=== PATIENT | female | born 1985 | race Caucasian/White ===

== ENCOUNTER 2017-09-13 01:12 | Emergency (ER) | payer BC ==
[2017-09-13] MEDS ORDERED: Sodium Chloride 0.9% 10 ML Syringe FLUSH PRN (01:24)
[2017-09-13] MEDS ORDERED: Promethazine 25 MG/ML SDV IM ONE (01:24)
[2017-09-13] MEDS ORDERED: Ketorolac 30 MG/ML SDV IVPUSH ONE (01:24)
[2017-09-13] MEDS ORDERED: Ondansetron 4 MG/2 ML SDV IVPUSH ONE (01:24)
[2017-09-13] MEDS ORDERED: Sodium Chloride 0.9% 1,000 ML IV ONE ×2 (01:25→02:25)
[2017-09-13] MEDS ORDERED: Loperamide 2 MG Tab PO ONE (01:25)
--- NOTE | 2017-09-13 01:31 | EDM.PDOC ---
ED HPI GENERAL MEDICAL PROBLEM - General Chief Complaint: Gastrointestinal Problem Stated Complaint: Vomiting, diarrhea Time Seen by Provider: 09/13/17 01:23 Source of Information: Reports: Patient History Limitations: Reports: No Limitations - History of Present Illness INITIAL COMMENTS - FREE TEXT/NARRATIVE: Sudden emesis/diarrhea starting at 10pm tonight. Feels shaky. No other complaints. Returned from [place] last Sunday. [place] well until tonight. Had salad that "didn't taste quite right" for dinner. 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 Throat Pain Score (Numeric/FACES): 5 - Related Data Allergies Allergy/AdvReac Type Severity Reaction Status Date / Time No Known Allergies Allergy Verified 09/17/17 00:13 Home Meds: Home Meds Multivitamin [Chewable Multi Vitamin] 1 each PO DAILY 09/23/15 [History] Non-Formulary Medication [NF Drug] 1 tab PO DAILY 09/23/15 [History] Ciprofloxacin [Cipro 500 MG/5 ML Susp] 500 mg PO Q12HR 10 Days #19 bottle [Rx] Ondansetron [Zofran ODT] 4 mg PO Q6H PRN #20 tab.dis 09/17/17 [Rx] Past Medical History - Past Health History Medical/Surgical History: Denies Medical/Surgical History Social & Family History - Tobacco Use Smoking Status *Q: Never Smoker ED ROS GENERAL - Review of Systems Review Of Systems: See Below Constitutional: Reports: Chills, Malaise, Decreased Appetite. Denies: Fever HEENT: Reports: No Symptoms Respiratory: Reports: No Symptoms Cardiovascular: Reports: No Symptoms GI/Abdominal: Reports: Diarrhea, Nausea, Vomiting. Denies: Abdominal Pain, Hematemesis, Hematochezia : Reports: No Symptoms Musculoskeletal: Reports: No Symptoms Skin: Reports: No Symptoms Neurological: Reports: No Symptoms Psychiatric: Reports: No Symptoms ED EXAM, GI/ABD - Physical Exam Exam: See Below Exam Limited By: No Limitations General Appearance: Alert, WD/WN, Moderate Distress (actively vomiting) Eyes: Bilateral: Normal Appearance, EOMI Nose: No: Nasal Drainage Throat/Mouth: Normal Inspection, Normal Lips, Normal Voice, No Airway Compromise Head: Atraumatic, Normocephalic Neck: Normal Inspection, Supple, Non-Tender, Full Range of Motion Respiratory/Chest: No Respiratory Distress, Lungs Clear, Normal Breath Sounds, No Accessory Muscle Use, Chest Non-Tender Cardiovascular: Normal Peripheral Pulses, Regular Rate, Rhythm, No Murmur GI/Abdominal Exam: Soft, No Distention, Tender (mild diffuse discomfort with palpation, bowel sounds present). No: Guarding, Rigid, Rebound (Female) Exam: Deferred Rectal (Female) Exam: Deferred Back Exam: Normal Inspection. No: CVA Tenderness (L), CVA Tenderness (R) Extremities: Normal Inspection Neurological: Alert, Oriented, CN II-XII Intact, Normal Cognition, Normal Gait, No Motor/Sensory Deficits Psychiatric: Normal Affect, Normal Mood Skin Exam: Warm, Dry, Intact, Normal Color Course - Vital Signs Last Recorded V/S: Last Vital Signs Temp 36.6 C 09/13/17 01:48 Pulse 103 H 09/13/17 01:48 Resp 16 09/13/17 01:48 BP 125/75 09/13/17 01:48 Pulse Ox 100 09/13/17 01:48 - Orders/Labs/Meds Meds: Medications Discontinued Medications Generic Name Dose Route Start Last Admin Trade Name Aracely PRN Reason Stop Dose Admin Diazepam 2 mg 09/13/17 01:40 09/13/17 04:50 Valium IVPUSH 09/13/17 01:41 Not Given ONETIME ONE Sodium Chloride 1,000 mls @ 999 mls/hr 09/13/17 01:25 09/13/17 01:29 Normal Saline IV 09/13/17 02:25 999 mls/hr .BOLUS ONE Administration Sodium Chloride 1,000 mls @ 999 mls/hr 09/13/17 02:25 09/13/17 02:34 Normal Saline IV 09/13/17 03:25 999 mls/hr .BOLUS ONE Administration Ketorolac Tromethamine 30 mg 09/13/17 01:24 09/13/17 01:29 Toradol IVPUSH 09/13/17 01:25 30 mg ONETIME ONE Administration Loperamide HCl 4 mg 09/13/17 01:25 09/13/17 02:35 Imodium Ad PO 09/13/17 01:26 4 mg ONETIME ONE Administration Ondansetron HCl 4 mg 09/13/17 01:24 09/13/17 01:29 Zofran IVPUSH 09/13/17 01:25 4 mg ONETIME ONE Administration Promethazine HCl 25 mg 09/13/17 01:24 09/13/17 01:35 Phenergan IM 09/13/17 01:25 25 mg ONETIME ONE Administration Sodium Chloride 10 ml 09/13/17 01:24 Saline Flush FLUSH ASDIRECTED PRN Keep Vein Open - Re-Assessments/Exams Free Text/Narrative Re-Assessment/Exam: 09/13/17 01:29 Suspect VGE vs food poisoning. Plan at this time is hydration, antiemetics, Imodium. Will discharge patient home if things improve. If viral in nature, this should run its course. Discussed with patient that with recent travel out of country, may need to consider further testing such as stool testing and initiation of antibiotics if this does not appear to run a normal VGE course. Departure - Departure Time of Disposition: 04:30 Disposition: Home, Self-Care 01 Condition: Good Clinical Impression: Gastroenteritis - Discharge Information Instructions: Viral Gastroenteritis, Adult, [id number] Referrals: PCP,None [Primary Care Provider] - Forms: ED Department Discharge, ED Return to Work/School Form Additional Instructions: Home, rest, clear liquid diet. Advance diet as tolerated in afternoon. Follow up as needed if you have problems.
[2017-09-13 01:50] VITALS: BP 125/75
== END 2017-09-13 04:10 | disposition home or self-care (01) ==
LOC: LL.ED 01:12
DX: K52.9 Noninfective gastroenteritis and colitis, unspecified (principal); Z79.899 Other long term (current) drug therapy
CPT/HCPCS: 96361; 96372; 96374; 96375; 99284; A9270-GY; J1885; J2405; J2550; J7030

== ENCOUNTER 2017-09-17 00:12 | Emergency (ER) | payer BC ==
[2017-09-17] MEDS ORDERED: Ondansetron 4 MG/2 ML SDV IVPUSH PRN (00:15)
[2017-09-17] MEDS ORDERED: Ondansetron 4 MG/2 ML SDV ONE (00:23)
[2017-09-17] MEDS ORDERED: Sodium Chloride 0.9% 10 ML Syringe FLUSH PRN (00:31)
[2017-09-17] MEDS ORDERED: Lactated Ringers 1,000 ML IV SCH (00:36)
--- NOTE | 2017-09-17 00:57 | EDM.PDOC ---
ED HPI GENERAL MEDICAL PROBLEM - General Chief Complaint: Gastrointestinal Problem Stated Complaint: diarrhea, vomitting, chills, weak, dizzy Time Seen by Provider: 09/17/17 00:15 Source of Information: Reports: Patient History Limitations: Reports: No Limitations - History of Present Illness INITIAL COMMENTS - FREE TEXT/NARRATIVE: Patient is a 32-year-old who was seen in the ER with chief complaint of not feeling well patient states that approximately 4 days ago on Sunday she was seen in the ER for diarrhea and gastroenteritis patient was treated with Lomotil IV fluids sent home since then she's had multiple episodes of nausea with vomiting dry heaves chills and an urge to have a bowel movement but has not been able to until she got here she's had a B bowel movement in the ER patient recently traveled to [facility]. Onset: Gradual Duration: Day(s):, Getting Worse Location: Reports: Abdomen Quality: Reports: Ache, Other (Crampy and sharp epigastric) Severity: Moderate Improves with: Reports: None Worsens with: Reports: None Context: Reports: Other (Illness) Associated Symptoms: Reports: Fever/Chills, Loss of Appetite, Nausea/Vomiting - Related Data Allergies Allergy/AdvReac Type Severity Reaction Status Date / Time No Known Allergies Allergy Verified 09/17/17 00:13 Home Meds: Home Meds Multivitamin [Chewable Multi Vitamin] 1 each PO DAILY 09/23/15 [History] Non-Formulary Medication [NF Drug] 1 tab PO DAILY 09/23/15 [History] Ciprofloxacin [Cipro 500 MG/5 ML Susp] 500 mg PO Q12HR 10 Days #19 bottle [Rx] Ondansetron [Zofran ODT] 4 mg PO Q6H PRN #20 tab.dis 09/17/17 [Rx] Past Medical History - Past Health History Medical/Surgical History: Denies Medical/Surgical History Social & Family History - Tobacco Use Smoking Status *Q: Never Smoker - Recreational Drug Use Recreational Drug Use: No ED ROS GENERAL - Review of Systems Review Of Systems: See Below Constitutional: Reports: Chills, Weakness HEENT: Reports: No Symptoms Respiratory: Reports: No Symptoms Cardiovascular: Reports: No Symptoms Endocrine: Reports: No Symptoms GI/Abdominal: Reports: Abdominal Pain, Diarrhea, Other (Nausea) : Reports: No Symptoms Musculoskeletal: Reports: No Symptoms Skin: Reports: No Symptoms Psychiatric: Reports: No Symptoms ED EXAM, GI/ABD - Physical Exam Exam: See Below Exam Limited By: No Limitations General Appearance: Alert, WD/WN, Moderate Distress Ears: Normal External Exam, Normal Canal, Hearing Grossly Normal, Normal TMs Nose: Normal Inspection, Normal Mucosa, No Blood Throat/Mouth: Normal Inspection, Normal Lips, Normal Teeth, Normal Gums, Normal Oropharynx, Normal Voice, No Airway Compromise Head: Atraumatic, Normocephalic Neck: Normal Inspection, Supple, Non-Tender, Full Range of Motion Respiratory/Chest: No Respiratory Distress, Lungs Clear, Normal Breath Sounds, No Accessory Muscle Use, Chest Non-Tender Cardiovascular: Normal Peripheral Pulses, Regular Rate, Rhythm, No Edema, No Gallop, No JVD, No Murmur, No Rub GI/Abdominal Exam: Abnormal Bowel Sounds (Hyperactive) (Female) Exam: Deferred Rectal (Female) Exam: Deferred Back Exam: Normal Inspection, Full Range of Motion, NT Extremities: Normal Inspection, Normal Range of Motion, Non-Tender, Normal Capillary Refill, No Pedal Edema Neurological: Alert, Oriented, CN II-XII Intact, Normal Cognition, Normal Gait, Normal Reflexes, No Motor/Sensory Deficits Psychiatric: Normal Affect, Normal Mood Course - Orders/Labs/Meds Orders: Active Orders 24 hr Category Date Time Status Peripheral IV Care [RC] . DIRECTED Care 09/17/17 00:31 Active OVA & PARASITES BY IMMUNOASSAY [MREF] Stat Lab 09/17/17 00:47 Ordered STOOL CULTURE [MREF] Stat Lab 09/17/17 00:47 Ordered Lactated Ringers [Ringers, Lactated] 1,000 ml Med 09/17/17 00:36 Active IV ASDIRECTED Ondansetron [Zofran] Med 09/17/17 00:15 Active 4 mg IVPUSH Q4H PRN Sodium Chloride 0.9% [Saline Flush] Med 09/17/17 00:31 Active 10 ml FLUSH ASDIRECTED PRN Peripheral IV Insertion Adult [OM.PC] Routine Oth 09/17/17 00:15 Ordered Medication Orders Lactated Ringer's (Ringers, Lactated) 1,000 mls @ 500 mls/hr IV ASDIRECTED [facility] Last Admin: 09/17/17 00:48 Dose: 500 mls/hr Ondansetron HCl (Zofran) 4 mg IVPUSH Q4H PRN PRN Reason: Nausea/Vomiting Last Admin: 09/17/17 00:34 Dose: 4 mg Sodium Chloride (Saline Flush) 10 ml FLUSH ASDIRECTED PRN PRN Reason: Keep Vein Open Meds: Medications Generic Name Dose Route Start Last Admin Trade Name Freq PRN Reason Stop Dose Admin Lactated Ringer's 1,000 mls @ 500 mls/hr 09/17/17 00:36 09/17/17 00:48 Ringers, Lactated IV 500 mls/hr ASDIRECTED FAWN Administration Ondansetron HCl 4 mg 09/17/17 00:15 09/17/17 00:34 Zofran IVPUSH 4 mg Q4H PRN Administration Nausea/Vomiting Sodium Chloride 10 ml 09/17/17 00:31 Saline Flush FLUSH ASDIRECTED PRN Keep Vein Open Discontinued Medications Generic Name Dose Route Start Last Admin Trade Name Freq PRN Reason Stop Dose Admin Ondansetron HCl Confirm 09/17/17 00:23 09/17/17 00:32 Zofran Administered 09/17/17 00:24 Not Given Dose 4 mg .ROUTE .STK-MED ONE Departure - Departure Time of Disposition: 01:54 Disposition: Home, Self-Care 01 Condition: Fair Clinical Impression: Travelers' diarrhea, Gastroenteritis - Discharge Information Instructions: Diarrhea, Adult - My Orders Last 24 Hours: My Active Orders 09/17/17 00:15 Ondansetron [Zofran] 4 mg IVPUSH Q4H PRN Peripheral IV Insertion Adult [OM.PC] Routine 09/17/17 00:31 Peripheral IV Care [RC] . DIRECTED Sodium Chloride 0.9% [Saline Flush] 10 ml FLUSH ASDIRECTED PRN 09/17/17 00:36 Lactated Ringers [Ringers, Lactated] 1,000 ml IV ASDIRECTED 09/17/17 00:47 OVA & PARASITES BY IMMUNOASSAY [MREF] Stat STOOL CULTURE [MREF] Stat - Assessment/Plan Last 24 Hours: My Active Orders 09/17/17 00:15 Ondansetron [Zofran] 4 mg IVPUSH Q4H PRN Peripheral IV Insertion Adult [OM.PC] Routine 09/17/17 00:31 Peripheral IV Care [RC] . DIRECTED Sodium Chloride 0.9% [Saline Flush] 10 ml FLUSH ASDIRECTED PRN 09/17/17 00:36 Lactated Ringers [Ringers, Lactated] 1,000 ml IV ASDIRECTED 09/17/17 00:47 OVA & PARASITES BY IMMUNOASSAY [MREF] Stat STOOL CULTURE [MREF] Stat
[2017-09-17 01:16] LABS: CHLORIDE,CL 104 mmol/L (98-107); SODIUM,NA 139 mmol/L (136-145)
[2017-09-17] MEDS ORDERED: Promethazine 25 MG in Sodium Chloride 0.9% 100 ML IV ONE (01:21)
[2017-09-17] MEDS ORDERED: Ondansetron 4 MG Tab.DIS PO ONE (01:45)
[2017-09-17] MEDS ORDERED: Ciprofloxacin 500 MG Tab PO ONE (01:45)
[2017-09-17] MEDS ORDERED: Lactated Ringers 1,000 ML IV ONE (02:21)
[2017-09-17 03:03] VITALS: BP 124/68
== END 2017-09-17 03:37 | disposition home or self-care (01) ==
LOC: LL.ED 00:12
DX: K52.9 Noninfective gastroenteritis and colitis, unspecified (principal); Z79.899 Other long term (current) drug therapy
CPT/HCPCS: 36415; 80053; 85025; 87045; 87046; 87328; 87329; 96361; 96374; 96375; 99284; A9270-GY; J2405; J2550; J7050; J7120